=== PATIENT | female | born 1950 | race Asian ===

== ENCOUNTER 2017-03-07 09:44 | Day surgery (SDC) | payer MEDICAID ==
[2017-03-06 11:28] VITALS: BMI 20.3
[2017-03-07] VITALS (14 sets, daily range): BP systolic 119–155; BP diastolic 60–83; PULSE 66–92; RESP 14–22; Ht 147.3 cm; Wt 43.0 kg
[~2017-03-07] VITALS: Ht 147.3 cm; Wt 43.0 kg
[~2017-03-07 09:44] MED LIST: ROCURONIUM 50 MG INJ ONE
[2017-03-07] MEDS ORDERED: LOSA25TA5 PO (10:31)
[2017-03-07] MEDS ORDERED: OMEP20CA16 PO (10:32)
[2017-03-07] MEDS ORDERED: SOD CHLORIDE 0.9% 1,000 ML IV SCH (11:00)
[2017-03-07] MEDS ORDERED: CEFAZOLIN 1 GM/50 ML (PMX) 50 ML IVPB ONE (11:00)
--- NOTE | 2017-03-07 12:44 | RADRPT ---
PROCEDURE: XR Chest. CLINICAL INDICATION: Preoperative for right partial mastectomy. History of breast cancer. TECHNIQUE: Single frontal view. COMPARISON: None. FINDINGS: The lungs are clear. The heart size is normal. There is no pleural effusion. There is no pneumothorax. IMPRESSION: 1. Normal chest radiograph. RPTAT: QQ .Enzo Lopez MD, MD Date Time Electronically viewed and signed by .Enzo Lopez MD, MD on 03/07/2017 12:44 .R/
[2017-03-07 13:23] LABS: BASOPHIL # 0.1 10^3/ul (0.0-0.1); BASOPHILS % 1.1 % (0.0-2.0); EOSINOPHILS # 0.8 10^3/ul (0.0-0.5); EOSINOPHILS % 9.2 % (0.0-7.0); HEMATOCRIT 36.4 % (37.0-47.0); HEMOGLOBIN 12.8 g/dl (12.0-16.0); LYMPHOCYTES # 1.6 10^3/ul (0.8-2.9); LYMPHOCYTES % 17.6 % (15.0-51.0); MEAN CORPUSCULAR HEMOGLOBIN 32.6 pg (29.0-33.0); MEAN CORPUSCULAR HGB CONC 35.2 g/dl (32.0-37.0); MEAN CORPUSCULAR VOLUME 92.6 fl (82.0-101.0); MEAN PLATELET VOLUME 8.8 fl (7.4-10.4); MONOCYTE # 0.4 10^3/ul (0.3-0.9); MONOCYTES % 4.8 % (0.0-11.0); NEUTROPHILS % 67.1 % (39.0-77.0); PLATELET COUNT 385 10^3/UL (140-415); RED BLOOD COUNT 3.93 10^6/ul (4.20-5.40); RED CELL DISTRIBUTION WIDTH 11.6 % (11.5-14.5); WHITE BLOOD COUNT 8.9 10^3/ul (4.8-10.8)
[2017-03-07 13:24] LABS: ADD SCAN DIFF NO
[2017-03-07 13:41] LABS: ALBUMIN 4.9 g/dl (3.3-4.9); ALBUMIN/GLOBULIN RATIO 1.32; BILIRUBIN,INDIRECT 0.7 mg/dl (0-1.1); BILIRUBIN,TOTAL 0.7 mg/dl (0.2-1.3); TOTAL PROTEIN 8.6 g/dl (6.1-8.1)
[2017-03-07 13:42] LABS: INR 0.91; PROTIME 12.3 Sec (12.2-14.2)
[2017-03-07 13:43] LABS: PARTIAL THROMBOPLASTIN TIME 27.5 Sec (25.0-35.0)
[2017-03-07 13:47] LABS: CREATININE 0.71 mg/dl (0.44-1.00); POTASSIUM 4.5 mmol/L (3.5-5.1)
[2017-03-07] MEDS ORDERED: PROPOFOL 20 ML ONE (14:05)
[2017-03-07] MEDS ORDERED: LIDOCAINE 2% (SDV) 5 ML INJ ONE (14:05)
[2017-03-07] MEDS ORDERED: ONDANSETRON 4 MG INJ ONE (14:06)
[2017-03-07] MEDS ORDERED: METOCLOPRAMIDE 10 MG INJ ONE (14:06)
[2017-03-07] MEDS ORDERED: MEPERIDINE 100 MG INJ ONE (14:06)
[2017-03-07] MEDS ORDERED: ISOSULFAN BLUE 1% 5 ML INJ SC ONE (14:09)
[2017-03-07] MEDS ORDERED: CEFAZOLIN 1 GM INJ ONE (14:19)
[2017-03-07] MEDS ORDERED: SUCCINYLCHOLINE CHLORIDE 100 MG/5 ML SYG IV ONE (14:32)
[2017-03-07] MEDS ORDERED: NEOSTIGMINE 3 MG/3 ML SYRINGE ONE (15:06)
[2017-03-07] MEDS ORDERED: GLYCOPYRROLATE 1 MG INJ ONE (15:06)
[2017-03-07] MEDS ORDERED: morphine 2 MG INJ IV PRN (15:30)
[2017-03-07] MEDS ORDERED: ACETAMINOPHEN 1000MG/100ML IV 100 ML IVPB PRN (15:30)
[2017-03-07] MEDS ORDERED: ONDANSETRON 4 MG INJ IV PRN (15:30)
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
[2017-03-07] MEDS ORDERED: hydrALAzine 20 MG INJ IV PRN (17:00)
[2017-03-07] MEDS: D5W-0.45 NACL + KCL 20 MEQ 1,000 ML IV SCH ×2 (17:05→23:30)
[2017-03-08] VITALS: BP 137/77; RESP 18
[2017-03-08] MEDS: D5W-0.45 NACL + KCL 20 MEQ 1,000 ML IV SCH ×2 (02:32→11:18)
[2017-03-08 04:00] VITALS: BP 128/74; PULSE 57; RESP 16
[2017-03-08] MEDS ORDERED: PANTOPRAZOLE (EC) 40 MG TAB PO SCH (06:00)
[2017-03-08 08:04] VITALS: BP 126/76; RESP 22
[2017-03-08] MEDS ORDERED: LOSARTAN 25 MG TAB PO SCH (09:00)
[2017-03-08 09:06] LABS: BASOPHIL # 0.1 10^3/ul (0.0-0.1); BASOPHILS % 0.9 % (0.0-2.0); EOSINOPHILS % 11.6 % (0.0-7.0); HEMATOCRIT 34.7 % (37.0-47.0); HEMOGLOBIN 11.5 g/dl (12.0-16.0); LYMPHOCYTES # 1.3 10^3/ul (0.8-2.9); LYMPHOCYTES % 14.6 % (15.0-51.0); MEAN CORPUSCULAR HEMOGLOBIN 31.4 pg (29.0-33.0); MEAN CORPUSCULAR HGB CONC 33.1 g/dl (32.0-37.0); MEAN CORPUSCULAR VOLUME 94.8 fl (82.0-101.0); MEAN PLATELET VOLUME 9.3 fl (7.4-10.4); MONOCYTE # 0.7 10^3/ul (0.3-0.9); MONOCYTES % 7.2 % (0.0-11.0); NEUTROPHIL # 5.9 10^3/ul (1.6-7.5); NEUTROPHILS % 65.6 % (39.0-77.0); PLATELET COUNT 348 10^3/UL (140-415); RED BLOOD COUNT 3.66 10^6/ul (4.20-5.40); RED CELL DISTRIBUTION WIDTH 11.8 % (11.5-14.5)
[2017-03-08 09:18] LABS: CALCIUM 9.5 mg/dl (8.4-10.2); CREATININE 0.81 mg/dl (0.44-1.00); POTASSIUM 5.4 mmol/L (3.5-5.1)
[2017-03-08] MEDS ORDERED: HYDR-906 PO (14:29)
[2017-03-08] MEDS ORDERED: DOCU-144 PO (14:29)
[2017-03-08] MEDS ORDERED: PANT40TA3 PO (14:29)
--- NOTE | 2017-03-08 14:30 | DS ---
Date/Time of Note Date/Time of Note DATE: 03/08/17 TIME: 14:29 Discharge Summary Admission/Discharge Info Admit Date/Time Discharge Date/Time Patient Condition: Stable Hx of Present Illness Patient is 66-year-old female with history of hypertension prediabetes. Patient is a recently diagnosed with invasive cancer of the [place] right breast. Patient was evaluated by Dr. Quintero in general surgery consultation and was admitted to the hospital and underwent right partial mastectomy with axillary dissection utilizing sentinel lymph node technique. Postoperatively patient experienced significant pain and patient will be admitted for further evaluation and management. Patient denies any shortness of breath denies. Home Meds Active Scripts Pantoprazole* (Protonix*) 40 Mg Tablet., 40 MG PO DAILY, #30 TAB Prov:ALEJANDRA FRANCIS 03/08/17 Docusate Sodium* (Colace*) 100 Mg Capsule, 100 MG PO DAILY, #30 CAP Prov:ALEJANDRA FRANCIS 03/08/17 Hydrocodone/Acetaminophen ([place] 5-325 Tablet) 1 Each Tablet, 6 EACH PO Q6 Y for PAIN LEVEL 7-10, #20 TAB Prov:ALEJANDRA FRANCIS 03/08/17 Reported Medications Omeprazole* (Omeprazole*) 20 Mg Capsule., 20 MG PO DAILY, #30 CAP 03/07/17 Losartan Potassium* (Losartan Potassium*) 25 Mg Tablet, 25 MG PO DAILY Y for ELEVATED BLOOD PRESSURE, TAB 03/07/17 Primary Care Provider Sajan Sousa Pending Labs Laboratory Tests Test 03/08/17 08:30 White Blood Count 9.010^3/ul (4.8-10.8) Red Blood Count 3.6610^6/ul (4.20-5.40) Hemoglobin 11.5g/dl (12.0-16.0) Hematocrit 34.7% (37.0-47.0) Mean Corpuscular Volume 94.8fl (82.0-101.0) Mean Corpuscular Hemoglobin 31.4pg (29.0-33.0) Mean Corpuscular Hemoglobin Concent 33.1g/dl (32.0-37.0) Red Cell Distribution Width 11.8% (11.5-14.5) Platelet Count 49162^3/UL (140-415) Mean Platelet Volume 9.3fl (7.4-10.4) Neutrophils % 65.6% (39.0-77.0) Lymphocytes % 14.6% (15.0-51.0) Monocytes % 7.2% (0.0-11.0) Eosinophils % 11.6% (0.0-7.0) Basophils % 0.9% (0.0-2.0) Nucleated Red Blood Cells % 0.0/100WBC (0.0-0.0) Neutrophils # 5.910^3/ul (1.6-7.5) Lymphocytes # 1.310^3/ul (0.8-2.9) Monocytes # 0.710^3/ul (0.3-0.9) Eosinophils # 1.010^3/ul (0.0-0.5) Basophils # 0.110^3/ul (0.0-0.1) Nucleated Red Blood Cells # 0.010^3/ul (0.0-0.0) Sodium Level 134mmol/L (135-144) Potassium Level 5.4mmol/L (3.5-5.1) Chloride Level 101mmol/L (97-110) Carbon Dioxide Level 27mmol/L (21-31) Anion Gap 11 (8-16) Blood Urea Nitrogen 9mg/dl (7-20) Creatinine 0.81mg/dl (0.44-1.00) Glucose Level 124mg/dl (70-220) Hemoglobin A1c 5.6% (0-5.9) Calcium Level 9.5mg/dl (8.4-10.2) ALEJANDRA FRANCIS Mar 08, 2017 14:29
--- NOTE | 2017-03-08 14:32 | PDOCDIS ---
Discharge Instructions CONDITION Patient Condition: Stable HOME CARE INSTRUCTIONS: Diet Instructions: RegularSpecial Diet: regular diet ACTIVITY: Activity Restrictions: Slowly Increase Activity Rest between Activity Avoid heavy lifting Avoid Heavy Housework Bathing Restrictions: Sponge BathActivity Restrictions Comment: DO NOT WET INCISION FOLLOW UP/APPOINTMENTS Follow-up Plan FU with Primary MD x 1 wek FU with Surgery as recommended. Call 911 or go to the nearest hospital if symptoms get worsen. Patient verbalized understanding discharge instructions. Plan dw Dr Brown/staff. ALEJANDRA FRANCIS Mar 08, 2017 14:32
--- NOTE | 2017-03-08 17:51 | RADRPT ---
Vent Rate: 79 bpm RR Interval: 0 msec LA Interval: 130 msec QRS Duration: 82 msec QT Interval: 370 msec QTC Interval: 424 msec P-R-T [place]: 73 - 72 - 68 degrees Normal sinus rhythm Normal ECG Electronically Signed By: Micheal Lees [id number]
== END 2017-03-08 15:30 | disposition home or self-care (01) ==
LOC: SDS 09:44 → MS1 16:25 → SDS 03-08 15:30
PROVIDERS: ATTEND Surgery Surgical Oncology
DX: C50.911 Malignant neoplasm of unspecified site of right female breast (principal); I10 Essential (primary) hypertension
CPT/HCPCS: 19301; 38500; 38792; 71010; 80048; 80053; 83036; 85025; 85610; 85730; 88307; 88313; 93005; J0131; J0690; J2175; J2405; J2710; J2765; J3480; J7999; Z7512; Z7610; Q9968

== ENCOUNTER 2017-04-21 06:34 | Day surgery (SDC) | END 2017-04-21 13:35 | disposition home or self-care (01) | DX: C50.911 Malignant neoplasm of unspecified site of right female breast (principal) | CPT/HCPCS: 36561; 76942; C1788; J0690; J1644; J2250; J2405; J3010; J7040; Z7610 ==

== ENCOUNTER 2018-07-24 06:31 | Day surgery (SDC) | END 2018-07-24 17:00 | disposition home or self-care (01) ==